=== PATIENT | male | born 1950 | race African-American/Black ===

== ENCOUNTER 2016-10-23 07:53 | Day surgery (SDC) | payer MEDICARE, OTHER ==
[~2016-10-23] VITALS: Ht 177.8 cm; Wt 77.3 kg
[~2016-10-23 07:53] MED LIST: ASPI-1093 PO; ATOR40TA28 PO; ATROPINE SULFATE 0.1 MG/ML 10 ML SYRINGE IVP ONE; CHL25 PO; CLON.2 PO; DiphenhydrAMINE HCL 50 MG/ML VIAL ONE; EPINEPHrine 1:10,000 [1 MG/10 ML] SYRINGE ONE; FLUMAZENIL 0.1 MG/ML 5 ML VIAL IVP ONE; FentaNYL CITRATE-PF 100 MCG/2 ML VIAL IVP PRN; HYDROmorphone 2 MG/ML SYRINGE IVP PRN; LIDOCAINE HCL 2% VISCOUS 15 ML SOLUTION UDCUP PO ONE; MEPERIDINE-PF 25 MG/ML SYRINGE IVP PRN; METH10 PO; NALOXONE HCL 0.4 MG/ML VIAL ONE; SODIUM CHLORIDE 0.9% 1,000 ML IV ONE; SODIUM TETRADECYL SULFATE 3% 60 MG/2 ML VIAL IVP ONE
[2016-10-23] MEDS ORDERED: OXYGEN THERAPY IH SCH (08:00)
== END 2016-10-23 08:25 | disposition home or self-care (01) ==
LOC: SURGERY 07:53
PROVIDERS: ATTEND Specialist
DX: K74.60 Unspecified cirrhosis of liver (principal); B19.20 Unspecified viral hepatitis C without hepatic coma; I10 Essential (primary) hypertension; E78.00 Pure hypercholesterolemia, unspecified; F17.210 Nicotine dependence, cigarettes, uncomplicated; F10.21 Alcohol dependence, in remission; Z79.82 Long term (current) use of aspirin; Z98.890 Other specified postprocedural states; Z53.8 Procedure and treatment not carried out for other reasons
CPT/HCPCS: J0171; J0461; J1200; J2310; J3490; J7030

== ENCOUNTER 2016-10-30 05:27 | Day surgery (SDC) | payer MEDICARE, OTHER ==
[~2016-10-30] VITALS: Ht 172.7 cm; Wt 80.9 kg
[~2016-10-30 05:27] MED LIST changes: -ATROPINE SULFATE 0.1 MG/ML 10 ML SYRINGE IVP ONE; -DiphenhydrAMINE HCL 50 MG/ML VIAL ONE; -EPINEPHrine 1:10,000 [1 MG/10 ML] SYRINGE ONE; -FLUMAZENIL 0.1 MG/ML 5 ML VIAL IVP ONE; -FentaNYL CITRATE-PF 100 MCG/2 ML VIAL IVP PRN; -HYDROmorphone 2 MG/ML SYRINGE IVP PRN; -LIDOCAINE HCL 2% VISCOUS 15 ML SOLUTION UDCUP PO ONE; +LIDOCAINE HCL/PF 2% 5 ML VIAL IM ONE; -MEPERIDINE-PF 25 MG/ML SYRINGE IVP PRN; -NALOXONE HCL 0.4 MG/ML VIAL ONE; +PROPOFOL 1% 20 ML VIAL IVP ONE; -SODIUM CHLORIDE 0.9% 1,000 ML IV ONE; -SODIUM TETRADECYL SULFATE 3% 60 MG/2 ML VIAL IVP ONE
[2016-10-30] MEDS ORDERED: SODIUM CHLORIDE 0.9% 1,000 ML IV ONE ×2 (05:52→06:00)
== END 2016-10-30 09:05 | disposition home or self-care (01) ==
LOC: SURGERY 05:27
PROVIDERS: ATTEND Specialist
DX: K29.50 Unspecified chronic gastritis without bleeding (principal); B18.2 Chronic viral hepatitis C; K74.60 Unspecified cirrhosis of liver; I10 Essential (primary) hypertension; F17.210 Nicotine dependence, cigarettes, uncomplicated
CPT/HCPCS: 43239; 88305; 88312; 88342; C1769; J2704; J3490; J7030

== ENCOUNTER 2017-05-16 15:50 | Emergency (ER) | payer MEDICARE, OTHER ==
[~2017-05-16] VITALS: Ht 177.8 cm; Wt 77.3 kg
[~2017-05-16 15:50] MED LIST changes: -ASPI-1093 PO; +ASPI-1182 PO; -LIDOCAINE HCL/PF 2% 5 ML VIAL IM ONE; -PROPOFOL 1% 20 ML VIAL IVP ONE
[2017-05-16 17:43] VITALS: BP 169/112
== END 2017-05-16 18:09 | disposition home or self-care (01) ==
LOC: EMS 15:52
DX: T50.991A Poisoning by other drugs, medicaments and biological substances, accidental (unintentional), initial encounter (principal); I10 Essential (primary) hypertension; F11.10 Opioid abuse, uncomplicated; Z79.82 Long term (current) use of aspirin; Y92.89 Other specified places as the place of occurrence of the external cause
CPT/HCPCS: 99281

== ENCOUNTER 2018-01-28 02:21 | Emergency (ER) | payer MEDICARE, OTHER ==
[~2018-01-28] VITALS: Ht 177.8 cm; Wt 81.8 kg
[2018-01-28] MEDS ORDERED: LIDOCAINE HCL 1%/EPI 1:200,000/PF 30 ML VIAL INJ ONE (02:45)
[2018-01-28 03:19] VITALS: BP 129/87
== END 2018-01-28 03:27 | disposition home or self-care (01) ==
LOC: EMS 02:21
DX: L02.416 Cutaneous abscess of left lower limb (principal); I10 Essential (primary) hypertension; F17.210 Nicotine dependence, cigarettes, uncomplicated; Z79.82 Long term (current) use of aspirin
CPT/HCPCS: 10060; 99283; J3490

== ENCOUNTER 2018-12-31 06:01 | Emergency (ER) | payer MEDICARE, OTHER | END 2018-12-31 06:24 | disposition left against medical advice (07) | LOC: EMS 06:04 | DX: L02.416 Cutaneous abscess of left lower limb (principal); Z53.21 Procedure and treatment not carried out due to patient leaving prior to being seen by health care provider ==

== ENCOUNTER 2019-01-05 11:44 | Emergency (ER) | payer MEDICARE, OTHER ==
[~2019-01-05] VITALS: Ht 177.8 cm; Wt 81.0 kg
[2019-01-05 12:48] VITALS: BP 129/80
== END 2019-01-05 13:45 | disposition home or self-care (01) ==
LOC: EMS 11:44
DX: L03.115 Cellulitis of right lower limb (principal); I10 Essential (primary) hypertension; F17.210 Nicotine dependence, cigarettes, uncomplicated; F11.90 Opioid use, unspecified, uncomplicated; Z79.82 Long term (current) use of aspirin

== ENCOUNTER 2019-01-11 18:50 | Inpatient (IN) | payer MEDICARE, OTHER ==
[~2019-01-11] VITALS: Ht 177.8 cm; Wt 68.2 kg
[2019-01-11] MEDS ORDERED: RINGERS SOLUTION,LACTATED 2,050 ML IV ONE (19:27)
[2019-01-11] MEDS ORDERED: 0.9% SODIUM CHLORIDE 10 ML SYRINGE IVP PRN ×3 (19:30→23:15)
[2019-01-11] MEDS ORDERED: ACETAMINOPHEN 500 MG TABLET PO ONE (19:30)
[2019-01-11] MEDS ORDERED: VANCOMYCIN HCL 1 GM/D5% WATER 200 ML IV ONE (19:30)
[2019-01-11] MEDS ORDERED: LIDOCAINE 1% 10 ML VIAL INJ ONE (20:15)
[2019-01-11 20:19] LABS: BASOPHILS % (AUTO) 0.5 % (0.0-2.0); EOSINOPHILS % (AUTO) 1.3 % (1.0-6.0); HEMATOCRIT 32.7 % (41-53); HEMOGLOBIN 10.6 g/dL (13.5-17.5); LYMPHOCYTES # (AUTO) 1.8 K/uL (1.0-4.8); LYMPHOCYTES % (AUTO) 16.5 % (22.0-44.0); MEAN CORPUSCULAR HEMOGLOBIN 28.9 pg (26.0-34.0); MEAN CORPUSCULAR HGB CONC 32.4 G/dL (31.0-37.0); MEAN CORPUSCULAR VOLUME 89 fL (80-100); MONOCYTES # (AUTO) 0.6 K/uL (0.1-1.0); MONOCYTES % (AUTO) 5.5 % (2.0-9.0); NEUTROPHILS # (AUTO) 8.2 K/uL (1.8-7.7); NEUTROPHILS % (AUTO) 76.2 % (40.0-70.0); PLATELET COUNT (AUTO) 401 K/uL (150-450); RED BLOOD CELL COUNT(AUTO) 3.66 MIL/uL (4.50-5.90); RED CELL DISTRIBUTION WIDTH 14.3 % (11.5-14.5)
[2019-01-11 20:31] LABS: CALCIUM, TOTAL 9.7 mg/dL (8.8-10.5); CREATININE 1.62 mg/dL (0.60-1.30); POTASSIUM 4.3 mmol/L (3.5-5.1)
[2019-01-11 20:37] LABS: ALBUMIN 3.1 g/dL (3.4-5.0); BILIRUBIN,TOTAL 0.3 mg/dL (0.1-1.0); TOTAL PROTEIN, SERUM 8.8 g/dL (6.4-8.2)
[2019-01-11 20:39] LABS: LACTIC ACID 1.8 mmol/L (0.4-2.0)
[2019-01-11 21:05] LABS: PROTHROMBIN TIME 10.7 SEC (9.4-11.6)
[2019-01-11 21:12] LABS: APPEARANCE,URINE CLEAR (CLEAR); BILIRUBIN,URINE NEGATIVE (NEGATIVE); GLUCOSE, URINE (UA) NEGATIVE (NEGATIVE); KETONES,URINE NEGATIVE (NEGATIVE); LEUKOCYTE ESTERASE ,URINE NEGATIVE (NEGATIVE); NITRATE,URINE NEGATIVE (NEGATIVE); OCCULT BLOOD,URINE NEGATIVE (NEGATIVE); PH,URINE 6.5 (5.0-8.0); PROTEIN,URINE NEGATIVE (NEGATIVE)
[2019-01-11 21:32] LABS: INFLUENZA TYPE A NEGATIVE FOR TYPE A (NEGATIVE); INFLUENZA TYPE B NEGATIVE FOR TYPE B (NEGATIVE)
[2019-01-11] MEDS ORDERED: ACETAMINOPHEN 325 MG TABLET PO PRN (21:45)
[2019-01-11] MEDS ORDERED: ONDANSETRON HCL 4 MG/2 ML VIAL IVP PRN ×2 (21:45→23:15)
[2019-01-11 22:03] VITALS: BP 114/81
[2019-01-11] MEDS ORDERED: SODIUM CHLORIDE 0.9% 1,000 ML IV SCH (23:15)
[2019-01-11] MEDS ORDERED: OxyCODONE HCL/ACETAMINOPHEN 5-325 MG TABLET PO PRN ×2 (23:15)
[2019-01-11] MEDS ORDERED: DOCUSATE SODIUM 100 MG CAPSULE PO SCH (23:15)
[2019-01-12] MEDS ORDERED: ATORVASTATIN CALCIUM 40 MG TABLET PO SCH (09:00)
[2019-01-12] MEDS ORDERED: CloNIDine HCL 0.2 MG TABLET PO SCH (09:00)
[2019-01-12] MEDS ORDERED: VANCOMYCIN HCL 1 GM/D5% WATER 200 ML IV SCH (09:00)
[2019-01-12] MEDS ORDERED: FAMOTIDINE 20 MG TABLET PO SCH (09:00)
[2019-01-12] MEDS ORDERED: ASPIRIN 81 MG EC TABLET PO SCH (09:00)
[2019-01-12] MEDS ORDERED: CEPH250S PO (22:02)
[2019-01-12] MEDS ORDERED: SULF1TAB41 PO (22:02)
== END 2019-01-11 23:28 | disposition left against medical advice (07) | DRG 872 ==
LOC: EMS 18:51 → 4E 22:10
PROVIDERS: ADMIT Internal Medicine; ATTEND Internal Medicine
DX: A41.9 Sepsis, unspecified organism (principal); L02.415 Cutaneous abscess of right lower limb; E44.0 Moderate protein-calorie malnutrition; E86.0 Dehydration; F17.210 Nicotine dependence, cigarettes, uncomplicated; I10 Essential (primary) hypertension; Z53.21 Procedure and treatment not carried out due to patient leaving prior to being seen by health care provider; Z68.21 Body mass index [BMI] 21.0-21.9, adult
CPT/HCPCS: 10060; 83605; 87040; 87804; 93005; G0378; J3370; J3490; J7120

== ENCOUNTER 2019-01-12 07:38 | Emergency (ER) | payer MEDICARE, OTHER ==
[~2019-01-12] VITALS: Ht 177.8 cm; Wt 81.8 kg
[2019-01-12 08:39] LABS: BASOPHILS % (AUTO) 0.5 % (0.0-2.0); EOSINOPHILS % (AUTO) 2.2 % (1.0-6.0); HEMATOCRIT 31.4 % (41-53); HEMOGLOBIN 10.2 g/dL (13.5-17.5); LYMPHOCYTES # (AUTO) 1.7 K/uL (1.0-4.8); LYMPHOCYTES % (AUTO) 19.2 % (22.0-44.0); MEAN CORPUSCULAR HEMOGLOBIN 28.8 pg (26.0-34.0); MEAN CORPUSCULAR HGB CONC 32.3 G/dL (31.0-37.0); MEAN CORPUSCULAR VOLUME 89 fL (80-100); MONOCYTES # (AUTO) 0.7 K/uL (0.1-1.0); MONOCYTES % (AUTO) 7.7 % (2.0-9.0); NEUTROPHILS # (AUTO) 6.3 K/uL (1.8-7.7); NEUTROPHILS % (AUTO) 70.4 % (40.0-70.0); PLATELET COUNT (AUTO) 380 K/uL (150-450); RED BLOOD CELL COUNT(AUTO) 3.53 MIL/uL (4.50-5.90); RED CELL DISTRIBUTION WIDTH 14.1 % (11.5-14.5)
[2019-01-12 08:51] LABS: CALCIUM, TOTAL 9.2 mg/dL (8.8-10.5); CREATININE 1.45 mg/dL (0.60-1.30); POTASSIUM 3.7 mmol/L (3.5-5.1)
[2019-01-12 08:56] LABS: ALBUMIN 2.8 g/dL (3.4-5.0); BILIRUBIN,TOTAL 0.5 mg/dL (0.1-1.0); TOTAL PROTEIN, SERUM 8.1 g/dL (6.4-8.2)
[2019-01-12 08:58] LABS: LACTIC ACID 1.1 mmol/L (0.4-2.0)
[2019-01-12 09:17] VITALS: BP 119/79
[2019-01-12] MEDS ORDERED: CEPH250S PO (22:02)
[2019-01-12] MEDS ORDERED: SULF1TAB41 PO (22:02)
== END 2019-01-12 09:30 | disposition home or self-care (01) ==
LOC: EMS 07:40
DX: L02.415 Cutaneous abscess of right lower limb (principal); I10 Essential (primary) hypertension; F17.210 Nicotine dependence, cigarettes, uncomplicated; F11.90 Opioid use, unspecified, uncomplicated; Z79.82 Long term (current) use of aspirin
CPT/HCPCS: 83605

== ENCOUNTER 2019-01-12 21:43 | Emergency (ER) | payer MEDICARE, OTHER ==
[~2019-01-12] VITALS: Ht 172.7 cm; Wt 81.8 kg
[2019-01-12] MEDS ORDERED: CEPH250S PO (22:02)
[2019-01-12] MEDS ORDERED: SULF1TAB41 PO (22:02)
[2019-01-12] MEDS ORDERED: DiphenhydrAMINE HCL 25 MG CAPSULE PO ONE (22:45)
[2019-01-12] MEDS ORDERED: PredniSONE 20 MG TABLET PO ONE (22:45)
[2019-01-13 00:14] VITALS: BP 128/78
== END 2019-01-13 00:15 | disposition home or self-care (01) ==
LOC: EMS 21:48
DX: L27.0 Generalized skin eruption due to drugs and medicaments taken internally (principal); T36.8X5A Adverse effect of other systemic antibiotics, initial encounter; T36.1X5A Adverse effect of cephalosporins and other beta-lactam antibiotics, initial encounter; L02.415 Cutaneous abscess of right lower limb; I10 Essential (primary) hypertension; F17.210 Nicotine dependence, cigarettes, uncomplicated; F11.90 Opioid use, unspecified, uncomplicated; Z79.82 Long term (current) use of aspirin; Z98.890 Other specified postprocedural states; Y92.89 Other specified places as the place of occurrence of the external cause
CPT/HCPCS: 99283; J7512

== ENCOUNTER 2019-04-07 16:09 | Emergency (ER) | payer MEDICARE, OTHER ==
[~2019-04-07] VITALS: Ht 177.8 cm; Wt 81.8 kg
[~2019-04-07 16:09] MED LIST changes: +CEPH250S PO; +SULF1TAB41 PO
[2019-04-07 16:12] VITALS: BP 123/99
== END 2019-04-07 17:53 | disposition left against medical advice (07) ==
LOC: EMS 16:11
DX: R68.84 Jaw pain (principal); Z53.21 Procedure and treatment not carried out due to patient leaving prior to being seen by health care provider

== ENCOUNTER 2019-11-06 20:13 | Emergency (ER) | payer MEDICARE, OTHER ==
[~2019-11-06] VITALS: Ht 177.8 cm; Wt 81.0 kg
[~2019-11-06 20:13] MED LIST changes: +ASPI-1111 PO; -ASPI-1182 PO; -CEPH250S PO; -CLON.2 PO; +CLON0.2T2 PO; -SULF1TAB41 PO
[2019-11-06 20:20] VITALS: BP 138/96
== END 2019-11-06 21:20 | disposition left against medical advice (07) ==
LOC: EMS 20:13
DX: L02.612 Cutaneous abscess of left foot (principal); Z53.21 Procedure and treatment not carried out due to patient leaving prior to being seen by health care provider

== ENCOUNTER 2019-11-07 09:29 | Emergency (ER) | payer MEDICARE, OTHER ==
[~2019-11-07] VITALS: Ht 177.8 cm; Wt 81.8 kg
[2019-11-07] MEDS ORDERED: DiphenhydrAMINE HCL 50 MG/ML VIAL IM ONE (10:00)
[2019-11-07] MEDS ORDERED: DEXAMETHASONE SOD PHOS 4 MG/ML 5 ML VIAL IM ONE (10:00)
[2019-11-07 17:41] VITALS: BP 120/84
[2019-11-07 17:53] VITALS: BP 144/99
[2019-11-07 18:08] VITALS: BP 147/94
[2019-11-07 18:23] VITALS: BP 137/96
[2019-11-07 18:53] VITALS: BP 130/91
[2019-11-07 19:20] VITALS: BP 125/84
== END 2019-11-07 20:02 | disposition left against medical advice (07) ==
LOC: EMS 09:31
DX: T78.3XXA Angioneurotic edema, initial encounter (principal); I10 Essential (primary) hypertension; F17.210 Nicotine dependence, cigarettes, uncomplicated; Z79.899 Other long term (current) drug therapy
CPT/HCPCS: 36415; 36430; 86850; 86900; 86901; 86927; 96372; 99291; J1100; J1200; P9017

== ENCOUNTER 2019-11-07 22:23 | Emergency (ER) | payer MEDICARE, OTHER ==
[~2019-11-07] VITALS: Ht 177.8 cm; Wt 81.8 kg
[2019-11-07 22:31] VITALS: BP 146/94
== END 2019-11-07 22:34 | disposition left against medical advice (07) ==
LOC: EMS 22:27
DX: T78.3XXA Angioneurotic edema, initial encounter (principal); Z53.21 Procedure and treatment not carried out due to patient leaving prior to being seen by health care provider

== ENCOUNTER 2020-03-15 02:46 | Emergency (ER) | payer MEDICARE, OTHER ==
[~2020-03-15] VITALS: Ht 177.8 cm; Wt 81.8 kg
[2020-03-15 02:51] VITALS: BP 142/89
== END 2020-03-15 03:50 | disposition left against medical advice (07) ==
LOC: EMS 02:46
DX: L02.416 Cutaneous abscess of left lower limb (principal); Z53.21 Procedure and treatment not carried out due to patient leaving prior to being seen by health care provider

== ENCOUNTER 2020-04-18 09:28 | Emergency (ER) | payer MEDICARE, OTHER ==
[~2020-04-18] VITALS: Ht 177.8 cm; Wt 84.1 kg
[2020-04-18] MEDS ORDERED: FAMOTIDINE 10 MG/ML 2 ML VIAL IVP ONE (10:30)
[2020-04-18] MEDS ORDERED: EPINEPHrine 1:1,000 [1 MG/ML] AMP IM ONE (10:30)
[2020-04-18] MEDS ORDERED: DiphenhydrAMINE HCL 50 MG/ML VIAL IVP ONE (10:30)
[2020-04-18] MEDS ORDERED: MethylPREDNISolone SOD SUCC 125 MG/2 ML VIAL IVP ONE (10:30)
[2020-04-18 11:37] LABS: BASOPHILS % (AUTO) 0.7 % (0.0-2.0); EOSINOPHILS % (AUTO) 1.4 % (1.0-6.0); HEMATOCRIT 36.2 % (41-53); HEMOGLOBIN 11.7 g/dL (13.5-17.5); LYMPHOCYTES # (AUTO) 2.6 K/uL (1.0-4.8); LYMPHOCYTES % (AUTO) 33.4 % (22.0-44.0); MEAN CORPUSCULAR HEMOGLOBIN 27.5 pg (26.0-34.0); MEAN CORPUSCULAR HGB CONC 32.3 G/dL (31.0-37.0); MEAN CORPUSCULAR VOLUME 85 fL (80-100); MONOCYTES # (AUTO) 0.5 K/uL (0.1-1.0); MONOCYTES % (AUTO) 6.5 % (2.0-9.0); NEUTROPHILS # (AUTO) 4.5 K/uL (1.8-7.7); PLATELET COUNT (AUTO) 353 K/uL (150-450); RED BLOOD CELL COUNT(AUTO) 4.25 MIL/uL (4.50-5.90); RED CELL DISTRIBUTION WIDTH 15.1 % (11.5-14.5)
[2020-04-18 11:51] LABS: CALCIUM, TOTAL 8.9 mg/dL (8.8-10.5); CREATININE 1.44 mg/dL (0.60-1.30); POTASSIUM 5.1 mmol/L (3.5-5.1)
[2020-04-18 12:04] LABS: PROTHROMBIN TIME 10.9 SEC (9.4-11.6)
[2020-04-18 12:16] LABS: ALBUMIN 3.7 g/dL (3.4-5.0); BILIRUBIN,TOTAL 0.2 mg/dL (0.1-1.0); TOTAL PROTEIN, SERUM 8.8 g/dL (6.4-8.2)
[2020-04-18] MEDS ORDERED: SODIUM CHLORIDE 0.9% 250 ML IV ONE (13:49)
[2020-04-18 14:15] VITALS: BP 145/101
[2020-04-18 14:30] VITALS: BP 136/80
[2020-04-18 15:00] VITALS: BP 143/88
== END 2020-04-18 15:20 | disposition home or self-care (01) ==
LOC: EMS 09:37
DX: T78.3XXA Angioneurotic edema, initial encounter (principal); R91.1 Solitary pulmonary nodule; X58.XXXA Exposure to other specified factors, initial encounter
CPT/HCPCS: 36415; 71045; 71250; 80053; 82550; 83880; 84484; 85025; 85610; 85730; 86850; 86900; 86901; 86927; 93005; 96372; 96374; 96375; 99291; J7050; P9017

== ENCOUNTER 2020-09-12 17:01 | Emergency (ER) | payer MEDICARE, OTHER ==
[~2020-09-12] VITALS: Ht 177.8 cm; Wt 79.1 kg
[~2020-09-12 17:01] MED LIST changes: -ASPI-1111 PO; +ASPI-1444 PO
[2020-09-12 17:08] VITALS: BP 145/104
== END 2020-09-12 18:45 | disposition left against medical advice (07) ==
LOC: EMS 17:01
DX: R60.0 Localized edema (principal); F17.210 Nicotine dependence, cigarettes, uncomplicated; I10 Essential (primary) hypertension; F12.90 Cannabis use, unspecified, uncomplicated
CPT/HCPCS: 93005; 99284; 99285; 71045-TC

== ENCOUNTER 2020-09-17 15:51 | Emergency (ER) | payer MEDICARE, OTHER ==
[~2020-09-17] VITALS: Ht 177.8 cm; Wt 79.5 kg
[2020-09-17 17:08] VITALS: BP 170/120
[2020-09-17] MEDS ORDERED: IBUPROFEN 400 MG TABLET PO ONE (18:45)
[2020-09-17] MEDS ORDERED: ACETAMINOPHEN 325 MG TABLET PO ONE (18:45)
== END 2020-09-17 19:00 | disposition left against medical advice (07) ==
LOC: EMS 15:51
DX: S50.11XA Contusion of right forearm, initial encounter (principal); F17.210 Nicotine dependence, cigarettes, uncomplicated; F12.90 Cannabis use, unspecified, uncomplicated; Z79.82 Long term (current) use of aspirin; W22.8XXA Striking against or struck by other objects, initial encounter; Y93.89 Activity, other specified; Y92.89 Other specified places as the place of occurrence of the external cause; Y99.8 Other external cause status
CPT/HCPCS: 99283

== ENCOUNTER → 2021-01-18 | Emergency (ER) | payer OTHER ==
[~2021-01-18] VITALS: Ht 177.8 cm; Wt 81.8 kg
[2021-01-18 17:30] VITALS: BP 152/108
== END | disposition home or self-care (01) ==
LOC: EMS 17:32
DX: R60.0 Localized edema (principal); Z53.21 Procedure and treatment not carried out due to patient leaving prior to being seen by health care provider

== ENCOUNTER 2021-02-12 19:18 | Inpatient (IN) | payer OTHER ==
[~2021-02-12] VITALS: Ht 177.8 cm; Wt 81.8 kg
[2021-02-12] MEDS ORDERED: DiphenhydrAMINE HCL 50 MG/ML VIAL IVP STA ×2 (19:47→20:20)
[2021-02-12] MEDS ORDERED: FAMOTIDINE 10 MG/ML 2 ML VIAL IVP ONE (20:00)
[2021-02-12] MEDS ORDERED: MethylPREDNISolone SOD SUCC 125 MG/2 ML VIAL IVP ONE (20:00)
[2021-02-12] MEDS ORDERED: SODIUM CHLORIDE 0.9% 1,000 ML IV ONE (20:00)
[2021-02-12] MEDS ORDERED: EPINEPHrine 1:1,000 [1 MG/ML] AMP IM ONE (20:00)
[2021-02-12] MEDS ORDERED: DiphenhydrAMINE HCL 50 MG/ML VIAL IM STA (20:19)
[2021-02-12 20:31] LABS: BASOPHILS % (AUTO) 0.9 % (0.0-2.0); EOSINOPHILS % (AUTO) 1.7 % (1.0-6.0); HEMATOCRIT 32.1 % (41-53); HEMOGLOBIN 10.3 g/dL (13.5-17.5); LYMPHOCYTES # (AUTO) 1.3 K/uL (1.0-4.8); LYMPHOCYTES % (AUTO) 23.4 % (22.0-44.0); MEAN CORPUSCULAR HEMOGLOBIN 27.4 pg (26.0-34.0); MEAN CORPUSCULAR HGB CONC 32.1 G/dL (31.0-37.0); MEAN CORPUSCULAR VOLUME 86 fL (80-100); MONOCYTES # (AUTO) 0.4 K/uL (0.1-1.0); MONOCYTES % (AUTO) 6.7 % (2.0-9.0); NEUTROPHILS # (AUTO) 3.7 K/uL (1.8-7.7); NEUTROPHILS % (AUTO) 67.3 % (40.0-70.0); PLATELET COUNT (AUTO) 296 K/uL (150-450); RED BLOOD CELL COUNT(AUTO) 3.76 MIL/uL (4.50-5.90); RED CELL DISTRIBUTION WIDTH 15.6 % (11.5-14.5)
[2021-02-12 20:40] LABS: CALCIUM, TOTAL 8.8 mg/dL (8.8-10.5); CREATININE 1.66 mg/dL (0.60-1.30); POTASSIUM 4.1 mmol/L (3.5-5.1)
[2021-02-12] MEDS ORDERED: 0.9% SODIUM CHLORIDE 10 ML SYRINGE IVP PRN (21:30)
[2021-02-12] MEDS ORDERED: ONDANSETRON HCL 4 MG/2 ML VIAL IVP PRN (21:30)
[2021-02-12] MEDS ORDERED: ACETAMINOPHEN 325 MG TABLET PO PRN (21:30)
[2021-02-12] MEDS ORDERED: LISI-660 PO (22:04)
[2021-02-12] MEDS ORDERED: EPINEPHrine 1:1,000 [1 MG/ML] AMP IM PRN (22:15)
[2021-02-12] MEDS ORDERED: DiphenhydrAMINE HCL 50 MG/ML VIAL IVP PRN (22:15)
[2021-02-12 22:39] LABS: COVID AG,FIA SOURCE NASOPHARYNGEAL
[2021-02-13] VITALS (7 sets, daily range): BP systolic 98–142; BP diastolic 63–88
[2021-02-13] MEDS ORDERED: DiphenhydrAMINE HCL 50 MG/ML VIAL IVP STA (00:50)
[2021-02-13] MEDS ORDERED: FAMOTIDINE 10 MG/ML 2 ML VIAL IVP ONE (01:00)
[2021-02-13] MEDS ORDERED: MethylPREDNISolone SOD SUCC 125 MG/2 ML VIAL IVP ONE (01:00)
[2021-02-13] MEDS ORDERED: EPINEPHrine 1:1,000 [1 MG/ML] AMP IM ONE (01:00)
[2021-02-13] MEDS ORDERED: LIDOCAINE 1% 10 ML VIAL ONE (01:14)
[2021-02-13] MEDS ORDERED: LIDOCAINE 1% 10 ML VIAL ID ONE (01:15)
[2021-02-13] MEDS ORDERED: MIDAZOLAM HCL 2 MG/2 ML VIAL IVP ONE ×3 (01:45→04:45)
[2021-02-13] MEDS ORDERED: KETAMINE HCL 50 MG/ML 10 ML VIAL IVP ONE ×2 (01:45)
[2021-02-13] MEDS ORDERED: PROPOFOL 1000 MG/ISO-OSM 100 ML IV PRN (01:45)
[2021-02-13] MEDS: PROPOFOL 1000 MG/ISO-OSM 100 ML IV PRN ×3 (02:24→20:22)
[2021-02-13 02:43] LABS: ABG A-A DIFF O2 247.4 mmHg (10-20.0); ABG BASE EXCESS -4.1 mmol/L (-2.0-3.0); ABG CARBOXYHEMOGLOBIN 0.7 % (0.0-1.5); ABG HCO3 20.9 mmol/L (22.0-26.0); ABG METHEMOGLOBIN 0.4 % (0.0-1.5); ABG OXYHEMOGLOBIN 96.9 % (94.0-100.0); ABG PCO2 48 mmHg (35-45); ABG PH 7.287 (7.35-7.450); ABG TOTAL HEMOGLOBIN 12.3 G/dL (12.0-18.0); PO2, ARTERIAL BG 127.4 mmHg (75.0-83.0); SOURCE, BLOOD GAS ARTERIAL; TEMPERATURE, FAHRENHEIT, BG 98.6 FAHREN (96.0-98.6)
[2021-02-13 02:44] LABS: O2 DEVICE,BLOOD GAS VENTILATOR (ROOM AIR); PEEP,BG 5 cm H2O; SITE, BLOOD GAS RT RADIAL; VT, ABG 525 ml
[2021-02-13] MEDS: FAMOTIDINE 10 MG/ML 2 ML VIAL IVP SCH ×2 (08:28→20:13)
[2021-02-13] MEDS ORDERED: MethylPREDNISolone SOD SUCC 125 MG/2 ML VIAL IVP SCH (09:00)
[2021-02-13] MEDS: MIDAZOLAM HCL 2 MG/2 ML VIAL IVP PRN (16:47)
[2021-02-14] MEDS: PROPOFOL 1000 MG/ISO-OSM 100 ML IV PRN ×7 (00:39→23:01)
[2021-02-14] MEDS: MethylPREDNISolone SOD SUCC 125 MG/2 ML VIAL IVP SCH ×4 (02:35→19:44)
[2021-02-14] MEDS: LABETALOL HCL 5 MG/ML 20 ML VIAL IVP PRN ×2 (03:30→16:19)
[2021-02-14 06:12] LABS: BASOPHILS % (AUTO) 0.1 % (0.0-2.0); EOSINOPHILS % (AUTO) 0 % (1.0-6.0); HEMATOCRIT 31.9 % (41-53); HEMOGLOBIN 10.3 g/dL (13.5-17.5); LYMPHOCYTES # (AUTO) 0.6 K/uL (1.0-4.8); LYMPHOCYTES % (AUTO) 3.5 % (22.0-44.0); MEAN CORPUSCULAR HEMOGLOBIN 27.2 pg (26.0-34.0); MEAN CORPUSCULAR HGB CONC 32.2 G/dL (31.0-37.0); MEAN CORPUSCULAR VOLUME 85 fL (80-100); MONOCYTES # (AUTO) 0.4 K/uL (0.1-1.0); MONOCYTES % (AUTO) 2.4 % (2.0-9.0); NEUTROPHILS # (AUTO) 16.3 K/uL (1.8-7.7); PLATELET COUNT (AUTO) 319 K/uL (150-450); RED BLOOD CELL COUNT(AUTO) 3.77 MIL/uL (4.50-5.90); RED CELL DISTRIBUTION WIDTH 15.2 % (11.5-14.5)
[2021-02-14 06:18] LABS: ALBUMIN 3.3 g/dL (3.4-5.0); BILIRUBIN,TOTAL 0.2 mg/dL (0.1-1.0); CALCIUM, TOTAL 8.6 mg/dL (8.8-10.5); CREATININE 1.86 mg/dL (0.60-1.30); POTASSIUM 4.1 mmol/L (3.5-5.1); TOTAL PROTEIN, SERUM 8.2 g/dL (6.4-8.2)
[2021-02-14] MEDS: MIDAZOLAM HCL 2 MG/2 ML VIAL IVP PRN ×4 (07:45→23:46)
[2021-02-14] MEDS: FAMOTIDINE 10 MG/ML 2 ML VIAL IVP SCH ×2 (08:06→20:08)
[2021-02-14] MEDS ORDERED: SODIUM CHLORIDE 0.9% 1,000 ML IV ONE (13:00)
[2021-02-14] MEDS ORDERED: AmLODIPine BESYLATE 5 MG TABLET NG ONE (18:00)
[2021-02-15] MEDS: MethylPREDNISolone SOD SUCC 125 MG/2 ML VIAL IVP SCH ×5 (01:18→20:19)
[2021-02-15] MEDS: LABETALOL HCL 5 MG/ML 20 ML VIAL IVP PRN ×3 (03:48→20:12)
[2021-02-15 05:16] LABS: EOSINOPHILS % (AUTO) 0 % (1.0-6.0); HEMATOCRIT 33.5 % (41-53); HEMOGLOBIN 10.7 g/dL (13.5-17.5); LYMPHOCYTES % (AUTO) 3.5 % (22.0-44.0); MEAN CORPUSCULAR HEMOGLOBIN 27.1 pg (26.0-34.0); MEAN CORPUSCULAR HGB CONC 31.8 G/dL (31.0-37.0); MEAN CORPUSCULAR VOLUME 85 fL (80-100); MONOCYTES % (AUTO) 1.9 % (2.0-9.0); PLATELET COUNT (AUTO) 313 K/uL (150-450); RED BLOOD CELL COUNT(AUTO) 3.93 MIL/uL (4.50-5.90); RED CELL DISTRIBUTION WIDTH 15.4 % (11.5-14.5)
[2021-02-15 05:17] LABS: BASOPHILS % (AUTO) 0.1 % (0.0-2.0); LYMPHOCYTES # (AUTO) 0.6 K/uL (1.0-4.8); MONOCYTES # (AUTO) 0.3 K/uL (0.1-1.0)
[2021-02-15] MEDS: MIDAZOLAM HCL 2 MG/2 ML VIAL IVP PRN ×2 (05:21→09:27)
[2021-02-15 05:25] LABS: CREATININE 1.47 mg/dL (0.60-1.30); POTASSIUM 4.1 mmol/L (3.5-5.1)
[2021-02-15 05:27] LABS: NEUTROPHILS % (AUTO) 94.5 % (40.0-70.0)
[2021-02-15 05:39] LABS: CALCIUM, TOTAL 8.6 mg/dL (8.8-10.5)
[2021-02-15] MEDS: PROPOFOL 1000 MG/ISO-OSM 100 ML IV PRN (06:43)
[2021-02-15] MEDS: FAMOTIDINE 10 MG/ML 2 ML VIAL IVP SCH ×2 (09:15→20:16)
[2021-02-15] MEDS: METOPROLOL TARTRATE 25 MG TABLET NG SCH ×2 (14:16→20:22)
[2021-02-15] MEDS: FentaNYL CIT 1000MCG/0.9% NACL 100 ML IV PRN ×2 (14:16→20:09)
[2021-02-15] MEDS ORDERED: ETOMIDATE 2 MG/ML 10 ML VIAL IV ONE (16:21)
[2021-02-15] MEDS ORDERED: LIDOCAINE 2% 5 ML JELLY TP ONE (16:21)
[2021-02-15 21:47] LABS: ABG A-A DIFF O2 91.7 mmHg (10-20.0); ABG BASE EXCESS 0.3 mmol/L (-2.0-3.0); ABG CARBOXYHEMOGLOBIN 0.3 % (0.0-1.5); ABG HCO3 24.7 mmol/L (22.0-26.0); ABG METHEMOGLOBIN 0.4 % (0.0-1.5); ABG OXYGEN CONTENT 15.8 mL/dL (15.0-23.0); ABG OXYGEN SATURATION 94.9 % (95.0-98.0); ABG OXYHEMOGLOBIN 94.2 % (94.0-100.0); ABG PCO2 40 mmHg (35-45); ABG PH 7.415 (7.35-7.450); ABG TOTAL HEMOGLOBIN 11.9 G/dL (12.0-18.0); PO2, ARTERIAL BG 75.7 mmHg (75.0-83.0); SOURCE, BLOOD GAS ARTERIAL; TEMPERATURE, FAHRENHEIT, BG 98.6 FAHREN (96.0-98.6)
[2021-02-15 21:48] LABS: SITE, BLOOD GAS RT RADIAL
[2021-02-15 21:49] LABS: O2 DEVICE,BLOOD GAS VENTILATOR (ROOM AIR); PEEP,BG 5 cm H2O; VT, ABG 525 ml
[2021-02-15] MEDS: HEPARIN SODIUM,PORCINE 5,000 UNITS/ML VIAL SQ SCH (23:26)
[2021-02-16] MEDS: DiphenhydrAMINE HCL 50 MG/ML VIAL IVP SCH ×2 (01:56→08:13)
[2021-02-16] MEDS: FentaNYL CIT 1000MCG/0.9% NACL 100 ML IV PRN (01:56)
[2021-02-16] MEDS: MethylPREDNISolone SOD SUCC 125 MG/2 ML VIAL IVP SCH (02:58)
[2021-02-16 04:18] LABS: BASOPHILS % (AUTO) 0.3 % (0.0-2.0); EOSINOPHILS % (AUTO) 0 % (1.0-6.0); HEMATOCRIT 32.4 % (41-53); HEMOGLOBIN 10.4 g/dL (13.5-17.5); LYMPHOCYTES # (AUTO) 0.5 K/uL (1.0-4.8); LYMPHOCYTES % (AUTO) 3.5 % (22.0-44.0); MEAN CORPUSCULAR HEMOGLOBIN 27.5 pg (26.0-34.0); MEAN CORPUSCULAR HGB CONC 31.9 G/dL (31.0-37.0); MEAN CORPUSCULAR VOLUME 86 fL (80-100); MONOCYTES # (AUTO) 0.4 K/uL (0.1-1.0); MONOCYTES % (AUTO) 3.1 % (2.0-9.0); NEUTROPHILS # (AUTO) 12.5 K/uL (1.8-7.7); PLATELET COUNT (AUTO) 293 K/uL (150-450); RED BLOOD CELL COUNT(AUTO) 3.77 MIL/uL (4.50-5.90); RED CELL DISTRIBUTION WIDTH 15.6 % (11.5-14.5)
[2021-02-16 04:28] LABS: CALCIUM, TOTAL 8.3 mg/dL (8.8-10.5); CREATININE 1.69 mg/dL (0.60-1.30); POTASSIUM 4.1 mmol/L (3.5-5.1)
[2021-02-16 04:33] LABS: NEUTROPHILS % (AUTO) 93.1 % (40.0-70.0)
[2021-02-16] MEDS: PROPOFOL 1000 MG/ISO-OSM 100 ML IV PRN ×2 (05:09→09:33)
[2021-02-16 08:06] LABS: ABG A-A DIFF O2 87.1 mmHg (10-20.0); ABG BASE EXCESS -1.3 mmol/L (-2.0-3.0); ABG CARBOXYHEMOGLOBIN 0.3 % (0.0-1.5); ABG HCO3 23.7 mmol/L (22.0-26.0); ABG METHEMOGLOBIN 0.3 % (0.0-1.5); ABG OXYGEN CONTENT 16.5 mL/dL (15.0-23.0); ABG OXYGEN SATURATION 96.3 % (95.0-98.0); ABG OXYHEMOGLOBIN 95.7 % (94.0-100.0); ABG PCO2 36 mmHg (35-45); ABG PH 7.429 (7.35-7.450); ABG TOTAL HEMOGLOBIN 12.2 G/dL (12.0-18.0); PO2, ARTERIAL BG 85.2 mmHg (75.0-83.0); SOURCE, BLOOD GAS ARTERIAL; TEMPERATURE, FAHRENHEIT, BG 97.8 FAHREN (96.0-98.6)
[2021-02-16 08:07] LABS: O2 DEVICE,BLOOD GAS VENTILATOR (ROOM AIR); PEEP,BG 5 cm H2O; SITE, BLOOD GAS RT RADIAL; SPONTANEOUS VT, BG 521 ml; VT, ABG 525 ml
[2021-02-16] MEDS: HEPARIN SODIUM,PORCINE 5,000 UNITS/ML VIAL SQ SCH (08:13)
[2021-02-16] MEDS: LABETALOL HCL 5 MG/ML 20 ML VIAL IVP PRN (08:21)
[2021-02-16 09:45] VITALS: BP 149/97
[2021-02-16] MEDS: FAMOTIDINE 10 MG/ML 2 ML VIAL IVP SCH (09:53)
[2021-02-16] MEDS: METOPROLOL TARTRATE 25 MG TABLET NG SCH (09:53)
== END 2021-02-17 10:36 | disposition short-term general hospital (02) | DRG 915 ==
LOC: EMS 19:21 → ICUN 22:04 → UNDOADMIN 02-15 13:05 → ICUN 02-15 13:05 → UNDODISIN 02-17 10:36
PROVIDERS: ADMIT Internal Medicine; ATTEND Internal Medicine
PROC: 5A1945Z Respiratory Ventilation, 24-96 Consecutive Hours (ICD-10-PCS; principal; 2021-02-12)
PROC: 0BH17EZ Insertion of Endotracheal Airway into Trachea, Via Natural or Artificial Opening (ICD-10-PCS; 2021-02-12)
PROC: 30233K1 Transfusion of Nonautologous Frozen Plasma into Peripheral Vein, Percutaneous Approach (ICD-10-PCS; 2021-02-13)
DX: T78.3XXA Angioneurotic edema, initial encounter (principal); J96.02 Acute respiratory failure with hypercapnia; N17.9 Acute kidney failure, unspecified; D64.9 Anemia, unspecified; E78.5 Hyperlipidemia, unspecified; I10 Essential (primary) hypertension; Z20.822 Contact with and (suspected) exposure to COVID-19; J38.5 Laryngeal spasm; T46.4X5A Adverse effect of angiotensin-converting-enzyme inhibitors, initial encounter; F17.210 Nicotine dependence, cigarettes, uncomplicated; F12.90 Cannabis use, unspecified, uncomplicated; G89.29 Other chronic pain; Z88.8 Allergy status to other drugs, medicaments and biological substances; Z79.899 Other long term (current) drug therapy; Z79.82 Long term (current) use of aspirin; Z71.6 Tobacco abuse counseling; Y92.098 Other place in other non-institutional residence as the place of occurrence of the external cause
CPT/HCPCS: 31500; 36600; 80048; 80053; 82805; 85025; 86850; 86900; 86901; 86927; 94003; 99291; G0378; J0171; J1200; J1644; J2250; J2704; J2930; J3490; J7030; P9017; Q9967

== ENCOUNTER 2021-11-01 19:36 | Emergency (ER) | payer OTHER ==
[~2021-11-01] VITALS: Ht 177.8 cm; Wt 68.2 kg
[~2021-11-01 19:36] MED LIST changes: +LISI-660 PO
[2021-11-02] MEDS ORDERED: LORazepam 2 MG/ML VIAL IM ONE (00:15)
[2021-11-02] MEDS: KETOROLAC TROMETHAMINE 60 MG/2 ML VIAL IM ONE ×2 (00:31→01:25)
[2021-11-02] MEDS ORDERED: LORA-1000 PO (01:29)
[2021-11-02] MEDS ORDERED: IBUP-1554 PO (01:29)
[2021-11-02] MEDS ORDERED: BACL10TA PO (01:29)
[2021-11-02 02:30] VITALS: BP 160/85
[2021-11-03] MEDS ORDERED: QUET50TA24 PO (17:58)
[2021-11-03] MEDS ORDERED: DILT60CA PO (17:58)
[2021-11-03] MEDS ORDERED: MIRT-89 PO (23:35)
== END 2021-11-02 03:00 | disposition home or self-care (01) ==
LOC: EMS 19:38
DX: M62.838 Other muscle spasm (principal); I10 Essential (primary) hypertension; F17.210 Nicotine dependence, cigarettes, uncomplicated; F12.90 Cannabis use, unspecified, uncomplicated; Z79.899 Other long term (current) drug therapy
CPT/HCPCS: 96372; 99283; J1885; J2060